=== PATIENT | female | born 1955 | race Caucasian/White ===

== ENCOUNTER 2021-05-24 10:17 | Outpatient (CLI) | payer BC ==
[2021-05-24 17:30] LABS: SARS-CoV-2 PCR by NAA Not Detected (NotDetected)
== END 2021-05-24 10:18 | disposition home or self-care (01) ==
LOC: CSHLAB 10:17
PROVIDERS: ATTEND Surgery
DX: Z20.822 Contact with and (suspected) exposure to COVID-19 (principal); C50.912 Malignant neoplasm of unspecified site of left female breast
CPT/HCPCS: U0003; U0005

== ENCOUNTER 2021-06-01 07:53 | Outpatient (CLI) | payer BC ==
[2021-06-01 20:19] LABS: SARS-CoV-2 PCR by NAA Not Detected (NotDetected)
== END 2021-06-01 07:54 | disposition home or self-care (01) ==
LOC: CSHLAB 07:53
PROVIDERS: ATTEND Surgery
DX: Z20.822 Contact with and (suspected) exposure to COVID-19 (principal); C50.912 Malignant neoplasm of unspecified site of left female breast
CPT/HCPCS: U0003; U0005

== ENCOUNTER 2021-06-03 06:52 | Day surgery (SDC) | payer BC ==
[2021-05-31 13:35] VITALS: BMI 25.7
[2021-06-03] MEDS ORDERED: Lidocaine 1% MPF 2 ML VIAL ONE (09:12)
[2021-06-03] MEDS ORDERED: Midazolam HCl 2 mg/2 ml Vial ONE (11:13)
[2021-06-03] MEDS ORDERED: Fentanyl 100 MCG/2 ML VIAL ONE ×2 (11:18→13:50)
[2021-06-03] MEDS ORDERED: PROPOFOL 20 ML ONE (11:18)
[2021-06-03] MEDS ORDERED: Dexamethasone 20 MG/5 ML VIAL ONE (11:19)
[2021-06-03] MEDS ORDERED: Ondansetron PF 4 MG/2 ML Vial ONE (11:19)
[2021-06-03] MEDS ORDERED: Lidocaine 2% PF 5 ML VIAL ONE (11:19)
[2021-06-03] MEDS ORDERED: Isosulfan Blue 50 MG/5 ML VIAL ONE (11:20)
[2021-06-03] MEDS ORDERED: Bupivacaine PF 0.5% 30 ML VIAL ONE (11:20)
[2021-06-03] MEDS ORDERED: EPINEPHrine 1 MG/ML AMP ONE (11:20)
[2021-06-03] MEDS ORDERED: ceFAZolin 2 GM/Dextrose 50 ML IVPB ONE (11:32)
[2021-06-03] MEDS ORDERED: Ketorolac Tromethamine 30 MG/ML VIAL ONE (12:48)
[2021-06-03] MEDS ORDERED: Meperidine HCl/PF 25 MG/ML VIAL ONE (13:36)
== END 2021-06-03 15:00 | disposition home or self-care (01) ==
LOC: CSHNM 06:52
PROVIDERS: ATTEND Surgery
PROC: 0HTU0ZZ Resection of Left Breast, Open Approach (ICD-10-PCS; principal; 2021-06-03)
PROC: 07B60ZX Excision of Left Axillary Lymphatic, Open Approach, Diagnostic (ICD-10-PCS; principal; 2021-06-03)
DX: C50.512 Malignant neoplasm of lower-outer quadrant of left female breast (principal); I10 Essential (primary) hypertension; Z79.899 Other long term (current) drug therapy; E78.00 Pure hypercholesterolemia, unspecified; Z90.710 Acquired absence of both cervix and uterus
CPT/HCPCS: 19281; 76098; 78195; 88307; 88342; A9541; J0171; J0690; J1100; J1885; J2001; J2175; J2250; J2405; J2704; J3010; Q9968; S0020

== ENCOUNTER 2021-09-07 10:26 | Outpatient (CLI) | payer BC | END 2021-09-07 10:27 | disposition home or self-care (01) | LOC: CSHMAMMO 10:26 | PROVIDERS: ATTEND Internal Medicine Hematology & Oncology | DX: Z13.820 Encounter for screening for osteoporosis (principal); T38.6X5A Adverse effect of antigonadotrophins, antiestrogens, antiandrogens, not elsewhere classified, initial encounter; C50.512 Malignant neoplasm of lower-outer quadrant of left female breast; M81.0 Age-related osteoporosis without current pathological fracture; M85.851 Other specified disorders of bone density and structure, right thigh; M85.852 Other specified disorders of bone density and structure, left thigh | CPT/HCPCS: 77080 ==

== ENCOUNTER 2022-01-19 12:39 | Outpatient (CLI) | payer MEDICARE, BC | END 2022-01-19 12:40 | disposition home or self-care (01) | LOC: CSHMAMMO 12:39 | PROVIDERS: ATTEND Surgery | DX: C50.912 Malignant neoplasm of unspecified site of left female breast (principal) | CPT/HCPCS: 77065; G0279 ==

== ENCOUNTER 2022-11-15 10:25 | Outpatient (CLI) | payer MEDICARE, BC | END 2022-11-15 10:26 | disposition home or self-care (01) | LOC: CSHMAMMO 10:25 | PROVIDERS: ATTEND Internal Medicine Hematology & Oncology | DX: M81.0 Age-related osteoporosis without current pathological fracture (principal); C50.512 Malignant neoplasm of lower-outer quadrant of left female breast; M85.851 Other specified disorders of bone density and structure, right thigh; M85.852 Other specified disorders of bone density and structure, left thigh; E78.5 Hyperlipidemia, unspecified | CPT/HCPCS: 77080 ==

== ENCOUNTER 2024-01-25 09:44 | Outpatient (CLI) | payer MEDICARE, BC | END 2024-01-25 09:45 | disposition home or self-care (01) | LOC: CSHMAMMO 09:44 | PROVIDERS: ATTEND Specialist | DX: Z12.31 Encounter for screening mammogram for malignant neoplasm of breast (principal); M81.0 Age-related osteoporosis without current pathological fracture; M85.851 Other specified disorders of bone density and structure, right thigh; M85.852 Other specified disorders of bone density and structure, left thigh; Z80.3 Family history of malignant neoplasm of breast; Z85.3 Personal history of malignant neoplasm of breast; Z90.12 Acquired absence of left breast and nipple; Z98.890 Other specified postprocedural states | CPT/HCPCS: 77063; 77067; 77080 ==